=== PATIENT | female | born 1930 | race Caucasian/White ===

== ENCOUNTER 2016-07-25 14:27 | Inpatient (IN) | payer MEDICARE, OTHER ==
[~2016-07-25] VITALS: Ht 160 cm; Wt 50.2 kg
[~2016-07-25 14:27] MED LIST: ABREVA10% TOP; ADVIL 200MG TA200 MG PO; ADVIL200 MG PO; ALLEGRA 180MG180 MG PO; ANTIVERT 25MG25 MG PO; B COMPLEX1 TA2 PO; BETAPACE 120MG120 MG PO; BETAPACE 80MG80 MG PO; BUMEX 1MG TA1 MG/TA1 PO; BUMEX1 MG PO; CALCIUM CITRATE1 TA5 PO; CALTRATE-600 W600 MG PO; CEFTIN 250250 MG/TAB PO; CENTRUM SILVER1 TA1 PO; CENTRUM1 TAB PO; CETIRIZINE; DETROL LA 4MG4 MG PO; DETROL LA4 PO; DIFLUCAN 100MG100 MG PO; DIOVAN HCT 12.51 TA2 PO; DIOVAN80 M1 PO; DRAMAMINE50 M1 PO; DULCOLAX S10 MG/SUPP RC; FISH OIL 1000MG1 CAP PO; FLAGYL 250250 MG/TAB PO; FLONASE NASAL S16 GM NS; GENTAMICIN OPTHA3 GM OD; GLUCOSAMINE & C1 CA1 PO; GUAIFENESI100 MG/51 PO; IPRATROPIUM BROM3 M1 IH; K-LOR CON; KLOR-CON M2020 MEQ PO; LEVAQUIN 5500 MG/TA1 PO; LEVAQUIN 750MG750 M1 PO; LOPRESSOR 225 MG/TAB PO; LORTAB 2.5/5001 TAB PO; MERREM IV1 GM IV; MILK OF MA400 MG/52; MOTRIN 600600 MG/TAB PO; MUCINEX 60600 MG/TA1 PO; MUCINEX 60600 MG/TAB PO; NO HOME MEDICATIONS; POTASSIUM CH2 MEQ/ML; POTASSIUM20 MEQ PO; PRILOSEC 20MG20 MG PO; PROAIR HFA0.09 MG/AC IH; QUININE SULFAT PO; SIMVASTATIN10 MG PO; SINGULAIR; SINGULAIR 110 MG/TAB PO; SINGULAIR10 MG PO; STRESS B COMPLE1 TAB PO; SYNTHROID 0.0.025 MG PO; SYNTHROID0.05 MG/TA PO; SYSTANE 0.4%-0.15 ML; SYSTANE LUBRICAN5 ML OP; ULTRAM 50MG TAB50 MG PO; VENTOLIN0.09 MG IH; VITAMIN B1250 MG PO; VITAMIN E1000 U/CAP PO; VITAMIN E200 I1 PO; ZITHROMAX 250M250 MG PO; ZOCOR 10MG10 MG PO; ZOCOR 40MG40 MG PO; ZOCOR40 MG PO; ZYRTEC; ZYRTEC 10MG10 MG PO; [UNRECOGNIZED DRUG - OTHER]; [UNRECOGNIZED DRUG - OTHER]; [UNRECOGNIZED DRUG - OTHER] PO; [UNRECOGNIZED DRUG - OTHER] PO; [UNRECOGNIZED DRUG - OTHER] PO; [UNRECOGNIZED DRUG - REMARK]; bp med; lecithin; water pill
[2016-07-25 15:21] LABS: BASO # 0.1 (0.0-0.2); BASO % 1.1 % (0.0-2.0); EOS # 0.3 (0.0-0.7); EOS % 2.8 % (0-4.0); GRAN # 7.2 (1.4-6.5); LYMPH % 17.6 % (20.0-51.0); MEAN CELL VOLUME 106 fl (80.0-100.0); MEAN CORPUSCULAR HGB CONC 34 g/dl (33.0-37.0); MONO # 1.4 (0.1-0.6); MONO % 12.7 % (1.7-9.3); RED BLOOD COUNT 2.88 M/mm3 (4.10-5.30); REDCELL DISTRIBUTION WIDTH-CV 16.1 % (11.5-14.5); WHITE BLOOD COUNT 11.1 K/mm3 (4.8-10.8)
[2016-07-25] MEDS ORDERED: MUCINEX 60600 MG/TA1 PO (15:21)
[2016-07-25] MEDS ORDERED: CITRACAL PETITE1 TAB PO (15:23)
[2016-07-25 15:25] LABS: ADJUSTED CALCIUM 9.3 mg/dL (8.4-10.2); ALBUMIN 3.6 gm/dL (3.5-5.0); BILIRUBIN,TOTAL 1.2 mg/dL (0.0-1.0); CREATININE, serum 0.69 mg/dL (0.52-1.25); POTASSIUM 4.3 mmol/L (3.4-5.0); TOTAL PROTEIN 7.8 gm/dL (6.4-8.2)
[2016-07-25 15:27] LABS: HEMATOCRIT 30.6 % (37.0-47.0); HEMOGLOBIN 10.5 g/dl (12.5-16.0); MEAN CORPUSCULAR HEMOGLOBIN 36 pg (27.0-31.0)
[2016-07-25] MEDS ORDERED: KRILL OIL 5001 EACH PO (15:28)
[2016-07-25] MEDS ORDERED: MOTRIN 600600 MG/TAB PO (15:29)
[2016-07-25] MEDS ORDERED: COMPLETE MULTI1 TA1 PO (15:30)
[2016-07-25 15:41] LABS: PLATELET COUNT 339 K/mm3 (130-400)
[2016-07-25 16:30] LABS: PH 7 (5-8); SQUAMOUS EPITHELIAL 0-2 /hpf; URINE APPEARANCE Clear; URINE BACTERIA None Seen /hpf; URINE BILIRUBIN Negative (NEGATIVE); URINE BLOOD Negative (NEGATIVE); URINE COLOR Yellow; URINE GLUCOSE Negative (NEGATIVE); URINE KETONE Trace (NEGATIVE); URINE RBC 0-2 /hpf; URINE UROBILINOGEN Negative (NEGATIVE); URINE WBC 0-2 /hpf
[2016-07-25 17:21] VITALS: BP 140/50; PULSE 61; TEMP 98.4
[2016-07-25 19:54] VITALS: BP 133/68; PULSE 64; TEMP 98.1
[2016-07-25 23:39] VITALS: BP 125/61; PULSE 64; TEMP 97.7
[2016-07-26] VITALS (7 sets, daily range): BP systolic 115–197; BP diastolic 50–55; PULSE 59–72; TEMP 97.6–100
[2016-07-27] VITALS (7 sets, daily range): BP systolic 107–132; BP diastolic 45–76; PULSE 63–77; TEMP 98.4–99.9
[2016-07-28 02:37] VITALS: BP 121/53; PULSE 72; TEMP 98.7
[2016-07-28 08:24] VITALS: BP 111/48; PULSE 67; TEMP 98.3
[2016-07-28 12:31] VITALS: BP 110/48; PULSE 71; TEMP 98.6
[2016-07-28] MEDS ORDERED: FLONASE NASAL S16 GM NS (16:47)
[2016-07-28] MEDS ORDERED: LEVAQUIN 5500 MG/TA1 PO (16:47)
[2016-07-28] MEDS ORDERED: MEDROL 4MG DOSPA4 MG PO (16:48)
[2016-07-28] MEDS ORDERED: IPRATROPIUM BROM3 M1 IH (16:50)
== END 2016-07-28 19:26 | disposition home health service (06) | DRG 191 ==
LOC: COL.ER 14:27 → MEDICAL 16:16
PROVIDERS: Emergency Medicine
DX: J47.0 Bronchiectasis with acute lower respiratory infection (principal); J45.901 Unspecified asthma with (acute) exacerbation; D69.3 Immune thrombocytopenic purpura; E44.0 Moderate protein-calorie malnutrition; Z68.1 Body mass index [BMI] 19.9 or less, adult; J18.9 Pneumonia, unspecified organism; B34.9 Viral infection, unspecified; Z95.0 Presence of cardiac pacemaker; I48.91 Unspecified atrial fibrillation; I10 Essential (primary) hypertension; M79.7 Fibromyalgia; E87.6 Hypokalemia
CPT/HCPCS: 99223-AI; 99232-AI; 99239; J0692; J1580; J1650; J1956; J7030

== ENCOUNTER → 2016-08-06 | Outpatient (CLI) | payer MEDICARE, OTHER ==
[~2016-08-06] MED LIST changes: +CITRACAL PETITE1 TAB PO; +COMPLETE MULTI1 TA1 PO; +KRILL OIL 5001 EACH PO; +MEDROL 4MG DOSPA4 MG PO; +TYLENOL 8 HR PO
[2016-08-06 17:38] LABS: MEAN CELL VOLUME 107 fl (80.0-100.0); MEAN CORPUSCULAR HGB CONC 34 g/dl (33.0-37.0); MEAN PLATELET VOLUME 12.5 fl (7.4-10.4); PLATELET COUNT 134 K/mm3 (130-400); RED BLOOD COUNT 3.09 M/mm3 (4.10-5.30); WHITE BLOOD COUNT 14.9 K/mm3 (4.8-10.8)
[2016-08-06 17:40] LABS: HEMATOCRIT 33.1 % (37.0-47.0); HEMOGLOBIN 11.4 g/dl (12.5-16.0); MEAN CORPUSCULAR HEMOGLOBIN 37 pg (27.0-31.0)
[2016-08-06 17:44] LABS: ADJUSTED CALCIUM 9.8 mg/dL (8.4-10.2); ALBUMIN 3.3 gm/dL (3.5-5.0); BILIRUBIN,TOTAL 0.7 mg/dL (0.0-1.0); CALCIUM 9.2 mg/dL (8.4-10.2); CREATININE, serum 0.67 mg/dL (0.52-1.25); POTASSIUM 5.2 mmol/L (3.4-5.0); TOTAL PROTEIN 6.8 gm/dL (6.4-8.2)
== END ==
LOC: ZCOL.LAB 16:53
PROVIDERS: Internal Medicine
DX: Z01.89 Encounter for other specified special examinations (principal)

== ENCOUNTER → 2016-08-06 | Outpatient (CLI) | payer MEDICARE, OTHER | LOC: ZCOL.LAB 15:02 | DX: Z02.89 Encounter for other administrative examinations (principal) ==

== ENCOUNTER 2016-10-20 19:09 | Emergency (ER) | payer MEDICARE, OTHER ==
[~2016-10-20] VITALS: Ht 162.6 cm; Wt 50.0 kg
[~2016-10-20 19:09] MED LIST changes: -TYLENOL 8 HR PO
[2016-10-20 19:10] VITALS: TEMP 97.9
[2016-10-20 19:37] LABS: BASO # 0.1 (0.0-0.2); BASO % 1.9 % (0.0-2.0); EOS # 0.8 (0.0-0.7); EOS % 11.4 % (0-4.0); GRAN # 2.1 (1.4-6.5); GRAN % 31.2 % (42.2-75.2); LYMPH # 2.8 (1.2-3.4); MEAN CELL VOLUME 108 fl (80.0-100.0); MEAN CORPUSCULAR HGB CONC 35 g/dl (33.0-37.0); MONO % 14.4 % (1.7-9.3); PLATELET COUNT 52 K/mm3 (130-400); RED BLOOD COUNT 2.93 M/mm3 (4.10-5.30); REDCELL DISTRIBUTION WIDTH-CV 17.6 % (11.5-14.5); WHITE BLOOD COUNT 6.9 K/mm3 (4.8-10.8)
[2016-10-20 19:47] LABS: ADJUSTED CALCIUM 9.4 mg/dL (8.4-10.2); ALANINE AMINOTRANSFERASE 22 U/L (9-52); ALBUMIN 4.1 gm/dL (3.5-5.0); ALKALINE PHOSPHATASE 60 U/L (50-136); ANION GAP 8 mmol/L (7-16); BILIRUBIN,TOTAL 0.8 mg/dL (0.0-1.0); BLOOD UREA NITROGEN 22 mg/dL (7-17); CALCIUM 9.5 mg/dL (8.4-10.2); CARBON DIOXIDE 25 mmol/L (22-30); CHLORIDE 100 mmol/L (98-107); CREATINE KINASE 40 U/L (30-135); GLUCOSE 94 mg/dL (74-106); POTASSIUM 4.6 mmol/L (3.4-5.0); SODIUM 133 mmol/L (137-145); TOTAL PROTEIN 7.8 gm/dL (6.4-8.2)
[2016-10-20 19:48] LABS: INR 1.1 (0.8-3.0); PROTHROMBIN TIME 12.7 SECONDS (9.7-12.8)
[2016-10-20 19:58] LABS: B-TYPE NATRIURETIC PEPTIDE 750 pg/mL (0-450); TROPONIN-I < 0.012 ng/mL (0.000-0.034)
[2016-10-20 20:13] LABS: HEMATOCRIT 31.5 % (37.0-47.0); HEMOGLOBIN 10.9 g/dl (12.5-16.0); MEAN CORPUSCULAR HEMOGLOBIN 37 pg (27.0-31.0)
[2016-10-20] MEDS ORDERED: TYLENOL 8 HR PO (20:13)
[2016-10-20] MEDS ORDERED: ANTIVERT 25MG25 MG PO (21:06)
[2016-10-20 21:31] VITALS: BP 148/78; PULSE 62
== END 2016-10-20 21:33 | disposition home or self-care (01) ==
LOC: COL.ER 19:09
PROVIDERS: Emergency Medicine
DX: R42 Dizziness and giddiness (principal); I10 Essential (primary) hypertension; E78.5 Hyperlipidemia, unspecified; I48.91 Unspecified atrial fibrillation; Z95.0 Presence of cardiac pacemaker; Z90.710 Acquired absence of both cervix and uterus; Z90.81 Acquired absence of spleen
CPT/HCPCS: J7030

== ENCOUNTER 2017-07-30 11:14 | Emergency (ER) | payer MEDICARE, OTHER ==
[~2017-07-30] VITALS: Ht 162.6 cm; Wt 45.5 kg
[~2017-07-30 11:14] MED LIST changes: +CALCIUM CARBON650 M2 PO; +DOXYCYCLINE 10100 MG PO; +TYLENOL 8 HR PO
[2017-07-30 11:18] VITALS: BP 172/70; PULSE 67; TEMP 97.1
[2017-07-30] MEDS ORDERED: FLEXERIL5 MG PO (12:26)
[2017-07-30] MEDS ORDERED: LIDODERM 5% PATC1 EA TP (12:26)
== END 2017-07-30 12:52 | disposition home or self-care (01) ==
LOC: COL.ER 11:14
DX: S16.1XXA Strain of muscle, fascia and tendon at neck level, initial encounter (principal); I10 Essential (primary) hypertension; I48.91 Unspecified atrial fibrillation; E78.5 Hyperlipidemia, unspecified; J44.9 Chronic obstructive pulmonary disease, unspecified; Z90.710 Acquired absence of both cervix and uterus; X58.XXXA Exposure to other specified factors, initial encounter

== ENCOUNTER → 2018-07-02 | Outpatient (CLI) | payer MEDICARE, OTHER ==
[~2018-07-02] MED LIST changes: +FLEXERIL5 MG PO; +LIDODERM 5% PATC1 EA TP
== END ==
LOC: ZCOL.LAB 11:10
DX: A49.8 Other bacterial infections of unspecified site (principal)

== ENCOUNTER 2018-07-18 17:43 | Observation (INO) | payer MEDICARE, OTHER ==
[~2018-07-18] VITALS: Ht 162.6 cm; Wt 49.1 kg
[2018-07-18 19:06] LABS: BASO # 0.1 (0.0-0.2); BASO % 1.5 % (0.0-2.0); EOS # 1.1 (0.0-0.7); EOS % 11.9 % (0-4.0); GRAN # 3.1 (1.4-6.5); GRAN % 33.6 % (42.2-75.2); LYMPH # 3.7 (1.2-3.4); LYMPH % 40.2 % (20.0-51.0); MEAN CELL VOLUME 101 fl (80.0-100.0); MEAN CORPUSCULAR HGB CONC 33 g/dl (33.0-37.0); MEAN PLATELET VOLUME 13.6 fl (7.4-10.4); MONO # 1.2 (0.1-0.6); MONO % 12.4 % (1.7-9.3); PLATELET COUNT 116 K/mm3 (130-400); RED BLOOD COUNT 2.54 M/mm3 (4.10-5.30); REDCELL DISTRIBUTION WIDTH-CV 18.4 % (11.5-14.5)
[2018-07-18 19:07] LABS: HEMATOCRIT 25.6 % (37.0-47.0); HEMOGLOBIN 8.4 g/dl (12.5-16.0); MEAN CORPUSCULAR HEMOGLOBIN 33 pg (27.0-31.0)
[2018-07-18 19:17] LABS: COLLECTION METHOD CLEAN CATCH
[2018-07-18 19:19] LABS: ALANINE AMINOTRANSFERASE 7 U/L (9-52); ALBUMIN 3.7 gm/dL (3.5-5.0); ALKALINE PHOSPHATASE 75 U/L (50-136); ANION GAP 7 mmol/L (7-16); AST,SGOT 30 U/L (15-37); BILIRUBIN,TOTAL 0.3 mg/dL (0.0-1.0); BLOOD UREA NITROGEN 21 mg/dL (7-17); CALCIUM 9.5 mg/dL (8.4-10.2); CARBON DIOXIDE 29 mmol/L (22-30); CHLORIDE 102 mmol/L (98-107); CREATININE, serum 0.83 (0.52-1.25); GLUCOSE 97 mg/dL (74-106); POTASSIUM 4.5 mmol/L (3.4-5.0); SODIUM 139 mmol/L (137-145); TOTAL PROTEIN 7.7 gm/dL (6.4-8.2)
[2018-07-18 19:23] LABS: MUCOUS Present /lpf; PH 7 (5-8); URINE APPEARANCE Hazy; URINE BACTERIA None Seen /hpf; URINE BILIRUBIN Negative (NEGATIVE); URINE BLOOD Negative (NEGATIVE); URINE COLOR Yellow; URINE GLUCOSE Negative (NEGATIVE); URINE KETONE Negative (NEGATIVE); URINE LEUKOCYTE ESTERASE Trace (NEGATIVE); URINE NITRATE Negative (NEGATIVE); URINE PROTEIN(semi-quant) Negative (NEGATIVE); URINE RBC 0-2 /hpf; URINE UROBILINOGEN Negative (NEGATIVE)
[2018-07-18 19:38] LABS: TROPONIN-I < 0.012 ng/mL (0.000-0.035)
[2018-07-18] MEDS ORDERED: KRILL OIL 1,501 EACH PO (22:49)
[2018-07-18] MEDS ORDERED: IPRATROPIUM BROM3 M1 IH (23:09)
[2018-07-18] MEDS ORDERED: CALCIUM CITRAT950 MG PO (23:11)
[2018-07-18] MEDS ORDERED: GENTAMICIN I40 MG/ML INH (23:13)
[2018-07-18 23:14] VITALS: BP 151/51; PULSE 64; TEMP 97.8
[2018-07-19] MEDS ORDERED: ADVIL200 MG PO (00:18)
--- NOTE | 2018-07-19 00:45 | NUR ---
Pt arrived to floor from the ED, placed on fall precautions, assessments complete, C/O mild pain at this time would like Tylenol for relief, called for tylenol to be added PRN, Pt given for relief of pain, initial assessments complete, left Pt call light in reach, bed in lowest position, bed alarm on.
[2018-07-19 04:01] VITALS: BP 152/59; PULSE 62; TEMP 98.1
[2018-07-19 06:12] LABS: BASO # 0.2 (0.0-0.2); BASO % 2.1 % (0.0-2.0); EOS # 0.8 (0.0-0.7); EOS % 11.7 % (0-4.0); GRAN # 1.9 (1.4-6.5); GRAN % 27.3 % (42.2-75.2); LYMPH # 3.1 (1.2-3.4); LYMPH % 43.1 % (20.0-51.0); MEAN CELL VOLUME 101 fl (80.0-100.0); MEAN CORPUSCULAR HGB CONC 33 g/dl (33.0-37.0); MONO # 1.1 (0.1-0.6); MONO % 15.5 % (1.7-9.3); PLATELET COUNT 97 K/mm3 (130-400); RED BLOOD COUNT 2.58 M/mm3 (4.10-5.30); REDCELL DISTRIBUTION WIDTH-CV 18.3 % (11.5-14.5)
[2018-07-19 06:15] LABS: HEMATOCRIT 26.1 % (37.0-47.0); HEMOGLOBIN 8.7 g/dl (12.5-16.0); MEAN CORPUSCULAR HEMOGLOBIN 34 pg (27.0-31.0)
[2018-07-19 06:26] LABS: CALCIUM 9.1 mg/dL (8.4-10.2); CREATININE, serum 0.63 (0.52-1.25)
[2018-07-19 07:23] VITALS: BP 143/55; PULSE 63; TEMP 98.3
--- NOTE | 2018-07-19 07:30 | NUR ---
Assessment completed, alert/oriented, vital signs stable, denies any significat pain or discomfort at this time/ stated right hand still hurt, we did X-ray of right hand aand showed no Fx or acute issues, patient denies any shortness of breath or resp.difficulty, lungs CTA, denies feeling lightheaded or or dizzzy, denies any chest pain or discomfort, heart RRR/ SR on tele and has a pacer, distal pulses are palpable, patient has no injuries or skin issues from recent falls at home, she is sititng up in bed ordering breakfast at this time, fall precautions in place and bed alarm on, she denies other needs at this time
[2018-07-19 12:41] VITALS: BP 137/53; PULSE 63; TEMP 98.7
--- NOTE | 2018-07-19 14:06 | NUR ---
SW met with the patient to discuss discharge plan. The patient lives alone in [place]. She reports that her son, Minh, lives across the road from her. She reports needing some assistance with bathing and has a cane and walker. She states that she has a supervisor meter repair shop that comes twice a week. She reports feeling more comfortable bathing when someone is at her house and that she usually waits to bathe when her supervisor meter repair shop is there. The patient's PCP is Dr. Sharri Razo and she receives her medications at the [facility]. She reports no difficulties obtaining her meds. The patient's advanced directives are in EMR. SW addressed PT and OT's recommendation of home health with family support vs SNF with the patient and her son. The patient's son was on speaker phone. The patient and son report that they are not there yet with going to a SNF. The patient's son reports that his and the patient do not get along very well, so the patient staying at their house was not really an option. He stated that he would continue to check in on the patient. The patient reports that she feels comfortable returning home and that she would be agreeable to home health. He stated that he would continue to check in on the patient. SW presented the patient with Medicare.gov's list of home health agencies that serve [place]. The patient reports that she has had services from [facility] in the past and she chose them again. SHERRI contacted and faxed a referral to Ayanna at [facility]. SW awaiting their screening.
--- NOTE | 2018-07-19 15:45 | NUR ---
Ayanna, at [facility], reports that they can accept the patient for services. SW informed the patient. The patient is to discharge back home today, 07/19, with [place] health services [place] [facility]PT[facility]OT through [facility]. Transportation back home to be provided by her son. No additional needs at this time.
--- NOTE | 2018-07-19 17:51 | NUR ---
Discharge instructions reviewed with the patient, instructed to follow up with and Dr.Koeneke reno we have scheduled for her, explained she can continue her normal home meds/ but to HOLD off on taking her Advil/IBuprofen for now untill she follows up with her PCP, social work has set her up with home health, I have removed her IV and her Telemetry, she is leaving with her son, [employer] escorted her out via wheelchair
== END 2018-07-19 17:53 | disposition home or self-care (01) ==
LOC: COL.ER 17:43 → MEDICAL 21:28
PROVIDERS: Emergency Medicine; Nurse Practitioner Family; ADMIT Hospitalist
DX: R29.6 Repeated falls (principal); I10 Essential (primary) hypertension; E78.5 Hyperlipidemia, unspecified; Z95.0 Presence of cardiac pacemaker; I48.91 Unspecified atrial fibrillation; D53.9 Nutritional anemia, unspecified; D69.6 Thrombocytopenia, unspecified; Z92.3 Personal history of irradiation; J32.9 Chronic sinusitis, unspecified; J30.2 Other seasonal allergic rhinitis; Z90.710 Acquired absence of both cervix and uterus; Z90.49 Acquired absence of other specified parts of digestive tract; Z88.6 Allergy status to analgesic agent; Z88.0 Allergy status to penicillin; Z88.2 Allergy status to sulfonamides; Z88.8 Allergy status to other drugs, medicaments and biological substances; Z91.018 Allergy to other foods; Z91.011 Allergy to milk products; Z91.012 Allergy to eggs
CPT/HCPCS: G0378; J1580; J7030

== ENCOUNTER 2018-07-29 06:34 | Emergency (ER) | payer MEDICARE, OTHER ==
[~2018-07-29] VITALS: Ht 162.6 cm; Wt 45.5 kg
[~2018-07-29 06:34] MED LIST changes: +CALCIUM CITRAT950 MG PO; +GENTAMICIN I40 MG/ML INH; +KRILL OIL 1,501 EACH PO
[2018-07-29 06:37] VITALS: TEMP 97.9
[2018-07-29 06:54] LABS: BASO # 0.2 (0.0-0.2); BASO % 2.2 % (0.0-2.0); EOS # 0.7 (0.0-0.7); EOS % 9.4 % (0-4.0); GRAN # 2.3 (1.4-6.5); LYMPH # 3.1 (1.2-3.4); LYMPH % 42.2 % (20.0-51.0); MEAN CELL VOLUME 101 fl (80.0-100.0); MEAN CORPUSCULAR HGB CONC 33 g/dl (33.0-37.0); MONO # 1.1 (0.1-0.6); MONO % 14.9 % (1.7-9.3); PLATELET COUNT 112 K/mm3 (130-400); RED BLOOD COUNT 2.86 M/mm3 (4.10-5.30); REDCELL DISTRIBUTION WIDTH-CV 18.4 % (11.5-14.5)
[2018-07-29 06:55] LABS: HEMATOCRIT 28.8 % (37.0-47.0); HEMOGLOBIN 9.6 g/dl (12.5-16.0); MEAN CORPUSCULAR HEMOGLOBIN 34 pg (27.0-31.0)
[2018-07-29 06:58] LABS: INR 1.2 (0.8-3.0); PROTHROMBIN TIME 13.4 SECONDS (9.7-12.8)
[2018-07-29 07:04] LABS: ALANINE AMINOTRANSFERASE < 6 U/L (9-52); ALBUMIN 3.7 gm/dL (3.5-5.0); ALKALINE PHOSPHATASE 78 U/L (50-136); ANION GAP 6 mmol/L (7-16); AST,SGOT 35 U/L (15-37); BILIRUBIN,TOTAL 0.6 mg/dL (0.0-1.0); BLOOD UREA NITROGEN 24 mg/dL (7-17); CARBON DIOXIDE 29 mmol/L (22-30); CHLORIDE 105 mmol/L (98-107); CREATININE, serum 0.74 (0.52-1.25); GLUCOSE 102 mg/dL (74-106); POTASSIUM 4.1 mmol/L (3.4-5.0); SODIUM 140 mmol/L (137-145); TOTAL PROTEIN 7.8 gm/dL (6.4-8.2)
[2018-07-29 07:17] LABS: TROPONIN-I < 0.012 ng/mL (0.000-0.035)
[2018-07-29 07:21] LABS: COLLECTION METHOD CLEAN CATCH
[2018-07-29 07:27] LABS: MUCOUS Present /lpf; PH 7 (5-8); SQUAMOUS EPITHELIAL 0-2 /hpf; URINE APPEARANCE Clear; URINE BACTERIA Rare /hpf; URINE BILIRUBIN Negative (NEGATIVE); URINE BLOOD Negative (NEGATIVE); URINE COLOR Yellow; URINE GLUCOSE Negative (NEGATIVE); URINE KETONE Negative (NEGATIVE); URINE LEUKOCYTE ESTERASE Negative (NEGATIVE); URINE NITRATE Negative (NEGATIVE); URINE PROTEIN(semi-quant) Negative (NEGATIVE); URINE RBC 0-2 /hpf; URINE UROBILINOGEN Negative (NEGATIVE)
--- NOTE | 2018-07-29 09:40 | NUR ---
SHERRI was called by ED doctor about patient having recurrent falls at home and concern about patient returning home alone. Patient was recently admitted discharged on 07/19. During that stay, [facility] was ordered. SHERRI contacted Tes[facility] and reported that patient was in the ED and also to inquire if patient has been seen by Danyelle and how often. Tesha reported that patient has been evaluated but nursing, PT and OT. It was decided that patient will be seen 4 or 5 times a week. Tesha also reported that patient was seen by her PCP, Dr Razo, on 07/26. Dr Razo suggested that patient go to a SNF for rehab. SHERRI then met with patient, patient's son and daughter in law about options. SHERRI reported that both ED doctor and PCP think that patient would benefit from a short stay at a SNF. At first, patient was not agreeable to SNF but after she spoke with her son, patient decided that going to SNF would be the best option for her. SHERRI gave patient and family SNF options and daily costs. Patient and family chose [facility]. SHERRI contacted Michel and also faxed a referral. Michel will meet with patient and family while she is in the ED. SHERRI will fax discharge orders and also arrange transportation.
[2018-07-29] MEDS ORDERED: MULTI VITAMINS1 TAB PO (10:47)
[2018-07-29] MEDS ORDERED: MOTRIN 200200 MG/TAB PO (10:49)
[2018-07-29 11:48] VITALS: BP 156/85
[2018-07-29 13:20] VITALS: PULSE 64
== END 2018-07-29 13:20 | disposition home or self-care (01) ==
LOC: COL.ER 06:34
PROVIDERS: Emergency Medicine
DX: R42 Dizziness and giddiness (principal); I48.91 Unspecified atrial fibrillation; I10 Essential (primary) hypertension; E78.5 Hyperlipidemia, unspecified; Z90.710 Acquired absence of both cervix and uterus; Z95.0 Presence of cardiac pacemaker
CPT/HCPCS: J7030

== ENCOUNTER → 2018-08-15 | Outpatient (CLI) | payer MEDICARE, OTHER ==
[~2018-08-15] MED LIST changes: +MOTRIN 200200 MG/TAB PO; +MULTI VITAMINS1 TAB PO
[2018-08-15 11:34] LABS: COLLECTION METHOD CLEAN CATCH
[2018-08-15 11:42] LABS: PH 6 (5-8); URINE APPEARANCE Clear; URINE BACTERIA None Seen /hpf; URINE BILIRUBIN Negative (NEGATIVE); URINE BLOOD Negative (NEGATIVE); URINE COLOR Yellow; URINE GLUCOSE Negative (NEGATIVE); URINE KETONE Negative (NEGATIVE); URINE LEUKOCYTE ESTERASE Negative (NEGATIVE); URINE NITRATE Negative (NEGATIVE); URINE PROTEIN(semi-quant) Negative (NEGATIVE); URINE RBC 0-2 /hpf; URINE UROBILINOGEN Negative (NEGATIVE)
== END ==
LOC: ZLAB.STJ 10:58
PROVIDERS: Nurse Practitioner
DX: R30.0 Dysuria (principal)

== ENCOUNTER 2018-09-25 07:05 | Inpatient (IN) | payer MEDICARE, OTHER ==
[~2018-09-25] VITALS: Ht 162.6 cm; Wt 50.1 kg
[2018-09-25 07:41] LABS: INR 1.1 (0.8-3.0)
[2018-09-25 07:43] LABS: PARTIAL THROMBOPLASTIN TIME 33.5 SECONDS (26.0-37.0)
[2018-09-25 07:45] LABS: ALBUMIN 3.5 gm/dL (3.5-5.0); BILIRUBIN,TOTAL 0.6 mg/dL (0.0-1.0); CALCIUM 9.4 mg/dL (8.4-10.2); CREATININE, serum 0.72 (0.52-1.25); POTASSIUM 4.2 mmol/L (3.4-5.0); TOTAL PROTEIN 7.3 gm/dL (6.4-8.2)
[2018-09-25 09:28] LABS: BASO # 0.1 (0.0-0.2); BASO % 0.9 % (0.0-2.0); EOS # 1.2 (0.0-0.7); EOS % 7.3 % (0-4.0); GRAN # 11.5 (1.4-6.5); GRAN % 71.7 % (42.2-75.2); LYMPH # 2.1 (1.2-3.4); LYMPH % 13.1 % (20.0-51.0); MEAN CELL VOLUME 102 fl (80.0-100.0); MEAN CORPUSCULAR HGB CONC 33 g/dl (33.0-37.0); MEAN PLATELET VOLUME 11.7 fl (7.4-10.4); MONO % 6.2 % (1.7-9.3); RED BLOOD COUNT 2.67 M/mm3 (4.10-5.30); REDCELL DISTRIBUTION WIDTH-CV 19.3 % (11.5-14.5)
[2018-09-25 09:34] LABS: HEMATOCRIT 27.2 % (37.0-47.0); MEAN CORPUSCULAR HEMOGLOBIN 34 pg (27.0-31.0)
[2018-09-25 09:35] LABS: PLATELET COUNT 250 K/mm3 (130-400)
[2018-09-25 09:42] VITALS: BP 149/64; PULSE 68; TEMP 97.9
--- NOTE | 2018-09-25 12:00 | NUR ---
Patient arrived to floor from ED via bed. Patient is alert and paritally oriented, answers some questions appropriately. Patient complains of pain in her left hip, leg is visibily externally rotated. Benitez placed per order, patient tolerated procedure well. Administered PRN pain medication per order, telemtery also placed. Patient resting in bed currently with several family members at bedside. Denies further needs at this time, call light within reach.
[2018-09-25 12:45] VITALS: BP 176/71; PULSE 72; TEMP 97.7
[2018-09-25 13:44] LABS: COLLECTION METHOD CLEAN CATCH
[2018-09-25 14:00] LABS: PH 6 (5-8); SQUAMOUS EPITHELIAL None Seen /hpf; URINE APPEARANCE Clear; URINE BACTERIA None Seen /hpf; URINE BILIRUBIN Negative (NEGATIVE); URINE BLOOD Negative (NEGATIVE); URINE COLOR Yellow; URINE GLUCOSE Negative (NEGATIVE); URINE KETONE Negative (NEGATIVE); URINE LEUKOCYTE ESTERASE Negative (NEGATIVE); URINE NITRATE Negative (NEGATIVE); URINE PROTEIN(semi-quant) Negative (NEGATIVE); URINE RBC 0-2 /hpf; URINE UROBILINOGEN Negative (NEGATIVE); URINE WBC 0-2 /hpf
[2018-09-25 15:38] VITALS: BP 149/68; PULSE 74; TEMP 98.9
[2018-09-25 17:26] VITALS: BP 149/68; PULSE 74; TEMP 98.9
--- NOTE | 2018-09-25 18:04 | NUR ---
Patient has left the facility with EMS per transfer orders. Patient was alert and paritally oriented prior to departure, administered PRN pain medication prior to departure to manage pain due to transport. Benitez catheter remains in place, telemetry box removed. Report called to recieving nurse and given to EMS at bedside.
== END 2018-09-25 18:06 | disposition short-term general hospital (02) | DRG 535 ==
LOC: COL.ER 07:05 → SURG 08:26
PROVIDERS: Family Medicine; ADMIT Family Medicine
DX: S72.142A Displaced intertrochanteric fracture of left femur, initial encounter for closed fracture (principal); J15.1 Pneumonia due to Pseudomonas; W18.30XA Fall on same level, unspecified, initial encounter; I10 Essential (primary) hypertension; I48.0 Paroxysmal atrial fibrillation; Z95.0 Presence of cardiac pacemaker; D69.59 Other secondary thrombocytopenia; J45.909 Unspecified asthma, uncomplicated; G31.84 Mild cognitive impairment of uncertain or unknown etiology; Z91.81 History of falling; E78.5 Hyperlipidemia, unspecified
CPT/HCPCS: 99222-AI; A4216; J0692; J1956; J2270; J2405; J7120